=== PATIENT | female | born 1930 | race Caucasian/White ===

== ENCOUNTER 2016-08-16 08:12 | Emergency (ER) | payer MEDICARE, BC ==
[~2016-08-16 08:12] MED LIST: ASPIRIN325 MG PO; MOBIC7.5 M2 PO; NIASPAN1000 MG PO; VERAPAMIL ER240 M2 PO; ZIAC 5-6.25 MG1 TAB PO; [UNRECOGNIZED DRUG - REMARK]
[2016-08-16] MEDS ORDERED: CENTRUM SILVER1 EAC6 PO (08:15)
[2016-08-16] MEDS ORDERED: ZIAC 5-6.25 MG1 EACH PO (08:15)
[2016-08-16] MEDS ORDERED: TYLENOL EXTRA500 M1 PO (08:16)
== END 2016-08-16 10:33 ==
LOC: EDMED 08:12
DX: I10 Essential (primary) hypertension (principal); Z96.642 Presence of left artificial hip joint; Z79.899 Other long term (current) drug therapy